=== PATIENT | male | born 1995 | race African-American/Black ===

== ENCOUNTER 2023-03-21 04:15 | Emergency (ER) | payer SELFPAY ==
[2023-03-21] MEDS ORDERED: Ketorolac Tromethamine 10 MG TAB ONE (05:00)
== END 2023-03-21 05:06 | disposition home or self-care (01) ==
LOC: MADERS 04:15
DX: M25.451 Effusion, right hip (principal); M25.562 Pain in left knee
CPT/HCPCS: 99283